=== PATIENT | male | born 1995 ===

== ENCOUNTER 2021-06-22 18:43 | Emergency (ER) | payer OTHER ==
--- NOTE | 2021-06-22 20:13 | ED Physician Documentation ---
History of Present Illness - Stated complaint Stated Complaint: COVID SYMPTOMS - Chief complaint Chief Complaint: Resp - Additonal information Additional information: 26-year-old male with no pertinent past medical history presents emergency department with 24 hours of generalized myalgias, cough congestion fevers that are subjective. Fully vaccinated for COVID-19. Denies sick contacts. He states he got worried when he is asleep in his bedroom and woke up in a sweat. He denies chest pain or shortness of air. He does vape daily. Review of Systems Constitutional: reports: Fever, Chills, Myalgias, Fatigue Eyes: denies: Loss of vision, Discharge, Irritation Ears: reports: Reviewed and negative Nose: reports: Reviewed and negative Throat: reports: Reviewed and negative Cardiac: reports: Reviewed and negative Respiratory: reports: Cough. denies: Dyspnea GI: reports: Nausea. denies: Vomiting : reports: Reviewed and negative Skin: reports: Reviewed and negative Musculoskeletal: reports: Reviewed and negative Neurologic: reports: Reviewed and negative Psychiatric: reports: Reviewed and negative Endocrine: reports: Reviewed and negative PD PAST MEDICAL HISTORY - Present Medications Home Medications: Ambulatory Orders Medication Instructions Recorded Confirmed No Known Home Medications 06/22/21 06/22/21 - Allergies Allergies/Adverse Reactions: Allergies Allergy/AdvReac Type Severity Reaction Status Date / Time No Known Drug Allergies Allergy Verified 06/22/21 20:07 PD ED PE NORMAL - General General: Alert and oriented X 3, No acute distress, Well developed/nourished - HEENT HEENT: Atraumatic, Ears normal, Moist mucous membranes, Pharynx benign - Neck Neck: Supple, no meningeal sign, No adenopathy - Cardiac Cardiac: RRR, No murmur - Respiratory Respiratory: No respiratory distress, Clear bilaterally - Abdomen Abdomen: Normal bowel sounds, Soft, Non tender - Back Back: No CVA TTP, No spinal TTP - Derm Derm: Normal color, Warm and dry, No rash - Extremities Extremities: No deformity - Neuro Neuro: Alert and oriented X 3 Eye Opening: Spontaneous Motor: Obeys Commands Verbal: Oriented GCS Score: 15 Results - Vitals Vitals: Vital Signs - 24 hr 06/22/21 19:40 Temperature 37.6 C Heart Rate 76 Respiratory 20 Rate Blood Pressure 114/74 O2 Saturation 99 Oxygen O2 Source Room air PD MEDICAL DECISION MAKING - ED course Complexity details: re-evaluated patient, considered differential, d/w patient ED course: This is a well-appearing 26-year-old male who presents for 24 hours of cough cold, congestion, subjective fevers and body aches. He is fully vaccinated for COVID-19 and denies sick contacts. Vital signs are unremarkable. No tachycardia or hypoxia. Cardiopulmonary auscultation was unremarkable. COVID- 19 screen is pending. I suspect that he likely has a viral URI. Patient was advised to remain in quarantine until test results are known. Emergent return precautions otherwise discussed. Departure - Departure Disposition: Home, Self Care Clinical Impression: Encounter for screening for COVID-19 Upper respiratory infection Qualifiers: URI type: unspecified viral URI Qualified Code(s): J06.9 - Acute upper respiratory infection, unspecified Condition: Stable Record reviewed to determine appropriate education?: Yes Instructions: ED Viral Syndrome Comments: Baldemar you are seen today for body aches subjective fevers cough headache and sore throat. You most likely have a viral illness causing your symptoms. We are testing you for COVID-19. I do recommend that you remain in quarantine until your test results are known. In general treat this like the common cold. Drink lots of fluids. You can take Tylenol or ibuprofen for any body aches and discomfort. Most symptoms will begin to resolve between 5 and 7 days. If any point you have difficulty breathing, severe chest pain, uncontrolled vomiting please return immediately to the ER for second evaluation. You have a Covid test pending. You need to self quarantine until the result is done and negative. Do not leave your house. Do not get near anybody. The results should be done in 48 to 72 hours. We will call with a positive result, the fastest way to get a negative result for confirmation though is to go to the hospital website at [email or web address], click on the my [facility] tab and sign up for the patient portal. If any friends or family get sick and would like to have a Covid test done, but do not have signs or symptoms that would necessitate being hospitalized, there are multiple local options for Covid testing. [facility] keeps an updated list of testing and vaccination options at [email or web address]
[2021-06-22 20:30] VITALS: BP 114/65
== END 2021-06-22 20:29 | disposition home or self-care (01) ==
LOC: ED 18:43
DX: U07.1 COVID-19 (principal)
CPT/HCPCS: 99282; 99283

== ENCOUNTER 2022-06-27 09:03 | Emergency (ER) | payer OTHER ==
--- NOTE | 2022-06-27 09:55 | XRAY Report ---
PROCEDURE: Chest 2 View X-Ray INDICATIONS: chest pain left TECHNIQUE: 2 views of the chest were acquired. COMPARISON: None. FINDINGS: Surgical changes and devices: None. Lungs and pleura: No pleural effusions or pneumothorax. Lungs are clear. Mediastinum: Mediastinal contours are normal. Heart size is normal. Bones and chest wall: No suspicious bony abnormalities. Soft tissues appear unremarkable. IMPRESSION: No acute cardiopulmonary pathology. Reviewed by: Fidel Mayorga MD on 06/27/2022 9:54 AM [facility] Approved by: Fidel Mayorga MD on 06/27/2022 9:54 AM [facility] Station ID: [id number]
--- NOTE | 2022-06-27 10:48 | ED Physician Documentation ---
PD HPI CHEST PAIN - Stated complaint Stated Complaint: SOA,CHEST PX - Chief complaint Chief Complaint: Cardiac - History obtained from History obtained from: Patient - History of Present Illness Timing - onset: How many days ago (2) Timing - onset during: Light activity Timing - duration: Days (2) Timing - details: Abrupt onset (he was at a friends house and standing by kitchen counter and felt abrupt onset of sharp right chest pain that was worse with breathing and some with movement. [place] short of breath. No syncope. Has continued to have the pain for 2 days. No change with eating. Does hurt more with lying flat on back.) Quality: Sharp, Stabbing, Pain Location: Right chest Radiation: Back Associated symptoms: Shortness of air. No: Nausea, Feeling faint / dizzy, General Weakness, Palpitations, Cough Similar symptoms before: Has not had sx before Recently seen: Not recently seen Review of Systems Constitutional: denies: Fever, Chills Nose: denies: Rhinorrhea / runny nose, Congestion Throat: denies: Sore throat Cardiac: denies: Palpitations, Pedal edema, Calf pain Respiratory: denies: Cough GI: denies: Abdominal Pain, Nausea, Vomiting Skin: denies: Rash PD PAST MEDICAL HISTORY - Past Medical History Cardiovascular: None Respiratory: None Musculoskeletal: None - Present Medications Home Medications: Ambulatory Orders Medication Instructions Recorded Confirmed HYDROcod/ACETAM 5/325 [[place] 5/325] 1 ea PO Q6H PRN #18 tablet 06/27/22 Naproxen 500 mg PO BID #20 tab 06/27/22 Ondansetron Odt [Zofran] 4 mg TL Q6H PRN #10 tablet 06/27/22 - Allergies Allergies/Adverse Reactions: Allergies Allergy/AdvReac Type Severity Reaction Status Date / Time No Known Drug Allergies Allergy Verified 06/27/22 09:13 - Social History Does the pt smoke?: No Does the pt have substance abuse?: No - Family History Family history: denies: Aortic aneursym, Aortic dissection PD ED PE NORMAL - Vitals Vital signs reviewed: Yes - General General: Alert and oriented X 3, No acute distress, Well developed/nourished - Neck Neck: Supple, no meningeal sign, No adenopathy - Cardiac Cardiac: RRR, No murmur, No rub - Respiratory Respiratory: Clear bilaterally, Other (no chestwall tenderness. ) - Abdomen Abdomen: Soft, Non tender - Derm Derm: Normal color, Warm and dry - Extremities Extremities: No edema, No calf tenderness / cord - Neuro Neuro: Alert and oriented X 3, No motor deficit, Normal speech Results - Vitals Vitals: Vital Signs - 24 hr 06/27/22 06/27/22 09:07 15:06 Temperature 36.6 C Heart Rate 62 78 Respiratory 16 16 Rate Blood Pressure 123/85 H 114/64 O2 Saturation 100 99 Oxygen O2 Source Room air - EKG (time done) 09:09 Rate: Rate (enter#) (62) Rhythm: NSR [place]: Normal Intervals: Normal [place] QRS: Normal Ischemia: Normal ST segments. No: ST elevation c/w ischemia, ST depression Compare to prior EKG: Old EKG unavailable - Labs Labs: Laboratory Tests 06/27/22 06/27/22 06/27/22 11:33 11:33 11:33 WBC 5.4 RBC 4.98 Hgb 14.9 Hct 44.5 MCV 89.4 MCH 29.9 MCHC 33.5 RDW 13.2 Plt Count 159 MPV 10.3 Neut # (Auto) 3.2 Lymph # (Auto) 1.7 [place] # (Auto) 0.5 Eos # (Auto) 0.1 Baso # (Auto) 0.0 Absolute Nucleated RBC 0.00 Nucleated RBC % 0.0 ESR 1 D-Dimer 274.0 H Sodium Potassium Chloride Carbon Dioxide Anion Gap BUN Creatinine Estimated GFR (MDRD) Glucose Calcium Total Bilirubin AST ALT Alkaline Phosphatase Troponin I High Sens Total Protein Albumin Globulin Albumin/Globulin Ratio Lipase 06/27/22 06/27/22 11:33 11:33 WBC RBC Hgb Hct MCV MCH MCHC RDW Plt Count MPV Neut # (Auto) Lymph # (Auto) [place] # (Auto) Eos # (Auto) Baso # (Auto) Absolute Nucleated RBC Nucleated RBC % ESR D-Dimer Sodium 135 Potassium 4.1 Chloride 102 Carbon Dioxide 28 Anion Gap 5.0 L BUN 13 Creatinine 0.9 Estimated GFR (MDRD) 101 Glucose 88 Calcium 9.4 Total Bilirubin 1.3 H AST 14 ALT 19 Alkaline Phosphatase 78 Troponin I High Sens < 2.3 L Total Protein 7.2 Albumin 4.5 Globulin 2.7 Albumin/Globulin Ratio 1.7 Lipase 27 - Rads (name of study) chest xray Radiology: Prelim report reviewed (no acute process), EMP read indepedently, See rad report chest CT-A Radiology: Prelim report reviewed (no PE nor acute lung abnormality. ), See rad report PD Medical Decision Making - ED course Complexity details: reviewed old records (I looked for prior hospitalizations or JOSE and did not find any. ), considered differential (had abrupt onset without injury nor mechanism such as cough, of pleuritic right medial chest pain with breathing and some with movement. No rpior similar. URI about 3-4 weeks ago but feeling well after. ), d/w patient Reviewed Lab Results: labs were considered, ordered and evaluated by me. His troponin is less than 2.3 no negative for acute myocardial injury, of either vasoocclusive or inflammatory. ESR is 1, which makes autoimmune such as lupus or rheumatoid unlikely. D-dimer of 274 is above normal range for age and makes pe a consideration still and needs to be evaluated better. Will get CT angio. Basic chest xray did not show any abnormality on my independent review. ECG did not show any abnormalities on my independent interpretation. ED course: evaluation of specific labs to evaluate for serious cause of the chest pain did not reveal a certain answer. D-dimer was above normal so ct angio chest was done, which was read as normal lungs and no PE by radiology report, which I reviewed. Therefore considerations would be some of the remaining causes that would not trigger testing abnormality, such as pleurisy, musculoskeletal pains, gi. Departure - Departure Disposition: 01 Home, Self Care Clinical Impression: Pleuritic chest pain Condition: Stable Record reviewed to determine appropriate education?: Yes Instructions: ED Chest Pain Pleurisy [facility]] Prescriptions: Naproxen 500 mg PO BID #20 tab HYDROcod/ACETAM 5/325 [[place] 5/325] 1 ea PO Q6H PRN #18 tablet PRN Reason: Pain Ondansetron Odt [Zofran] 4 mg TL Q6H PRN #10 tablet PRN Reason: Nausea / Vomiting Comments: It is unclear the cause of your pain in the chest. We looked pretty hard to find any bad things and your tests are looking good. In particular your chest x-ray, CT scan of the chest, EKG, blood tests are able to exclude pneumothorax, heart attack, heart failure, pneumonia, fluid around the heart or lung, or upper abdominal causes such as pancreas or liver inflammation. These are important things to exclude. What is left is potentially some inflammation around the lung (pleurisy). This sometimes is a precursor to a viral illness. If you start having a cough or chills or head cold type symptoms the next couple of days then this could make sense. Other consideration would be musculoskeletal pain. , And treatment for these couple of possibilities are anti-inflammatories and adding Tylenol or hydrocodone as needed for worse pain. I sent prescriptions for these plus some nausea medicine in case to the [facility] pharmacy in [place]. Rest off work for the next 2 to 3 days until this is improved well enough. I would anticipate improvement over the next 2 to 3 days and resolved by 3 to 5 days. Follow-up if not improved in that timeframe or if worsening or new symptoms. I am prescribing a short course of narcotic pain medication for you. These are potentially dangerous and addictive medications that should be used carefully. These medications may constipate you. Take an [id number] stool softener such as docusate twice daily with plenty of water while taking these medications. If you go 24 hours without a bowel movement, take [id number] MiraLAX, per package instructions. Do not drink or drive while taking these medications. If you received narcotic or sedating medications while in the emergency department do not drive for 24 hours. Store this medication in a safe, secure place and out of reach of children. It is a violation of federal law to give or sell this medication to another person or to use in a manner other than prescribed. The ED will not refill narcotic prescriptions, including prescriptions lost or stolen. You can dispose of unwanted medications at the [facility]'s office or at several pharmacies such as [facility]. Forms: Activity restrictions Discharge Date/Time: 06/27/22 15:06
[2022-06-27] MEDS ORDERED: KETOROLAC 15 MG/ML VIAL IVP STA (11:24)
[2022-06-27] MEDS ORDERED: ACETAMINOPHEN 325 MG TABLET PO STA (11:24)
[2022-06-27 11:41] LABS: BASOPHILS % (AUTO) 0.4 %; EOSINOPHILS # (AUTO) 0.1 10^3/uL (0.0-0.7); EOSINOPHILS % (AUTO) 1.3 %; HCT - HEMATOCRIT 44.5 % (42.0-52.0); HGB - HEMOGLOBIN 14.9 g/dL (14.0-18.0); LYMPHOCYTES # (AUTO) 1.7 10^3/uL (1.5-3.5); LYMPHOCYTES % (AUTO) 30.5 %; MEAN CORPUSCULAR HEMOGLOBIN 29.9 pg (27.0-31.0); MEAN CORPUSCULAR HGB CONC 33.5 g/dL (32.0-36.0); MEAN CORPUSCULAR VOLUME 89.4 fL (80.0-94.0); MEAN PLATELET VOLUME 10.3 fL (7.4-11.4); MONOCYTES # (AUTO) 0.5 10^3/uL (0.0-1.0); MONOCYTES % (AUTO) 8.3 %; NEUTROPHILS # (AUTO) 3.2 10^3/uL (1.5-6.6); NEUTROPHILS % (AUTO) 59.1 %; PLT - PLATELET COUNT 159 10^3/uL (130-450); RED BLOOD COUNT 4.98 10^6/uL (4.70-6.10); RED CELL DISTRIBUTION WIDTH 13.2 % (12.0-15.0); WHITE BLOOD COUNT 5.4 x10^3/uL (4.8-10.8)
[2022-06-27 11:57] LABS: ALBUMIN 4.5 g/dL (3.2-5.5); ALBUMIN/GLOBULIN RATIO 1.7 (1.0-2.2); BILIRUBIN,TOTAL 1.3 mg/dL (0.2-1.0); CALCIUM 9.4 mg/dL (8.5-10.3); CREATININE 0.9 mg/dL (0.6-1.2); POTASSIUM 4.1 mmol/L (3.5-5.0); TOTAL PROTEIN 7.2 g/dL (6.7-8.2)
[2022-06-27] MEDS ORDERED: HYDROmorphone 1 MG/ML CARPUJECT IVP STA ×2 (12:40→14:38)
[2022-06-27] MEDS ORDERED: iohexoL-300 100 ML VIAL ONE (13:13)
--- NOTE | 2022-06-27 14:13 | CT Report ---
PROCEDURE: ANGIO CHEST W/WO INDICATIONS: Chest pain abrupt 2d ago CONTRAST: 80ml Omnipaque 300 TECHNIQUE: After the administration of intravenous contrast, 2 mm axial images were acquired from the pulmonary apices to the posterior costophrenic angles during the arterial phase. In addition, 1 mm lung kernel and 5 mm soft tissue kernel reconstructions were performed. 3-dimensional coronal oblique maximum int ensity projection (MIP) reformats, 8 mm axial MIP, and 5 mm coronal and sagittal MPR reformats were t hen performed through the thorax. For radiation dose reduction, the following was used: automated exp osure control, adjustment of mA and/or kV according to patient size. COMPARISON: None FINDINGS: Image quality: Excellent. Pulmonary arteries: Pulmonary arteries are normal in size, and demonstrate no intraluminal filling d efects to suggest central pulmonary embolism. Lungs and pleura: Lungs are clear. No pleural effusions or pneumothorax. Central and peripheral ai rways are patent. Mediastinum: Heart size is normal, without pericardial effusion. No mediastinal or hilar adenopathy . Thoracic aorta is normal in caliber and enhancement. Esophagus is normal in caliber, without hiat al hernia. Bones and chest wall: No suspicious bony lesions. Ribs and thoracic spine appear intact throughout. No axillary or supraclavicular adenopathy. Abdomen: Visualized upper abdominal solid organs appear normal in the early arterial phase of enhanc ement. IMPRESSION: No pulmonary embolism or other acute finding in the chest. Reviewed by: Marbin Gallego MD on 06/27/2022 2:12 PM PST Approved by: Marbin Gallego MD on 06/27/2022 2:12 PM PST Station ID: [id number]
[2022-06-27] MEDS ORDERED: DEXAMETHASONE 10 MG/ML VIAL IVP STA (14:38)
[2022-06-27 15:06] VITALS: BP 114/64
[2022-06-27] MEDS ORDERED: iohexoL-300 100 ML VIAL IVP ONE (15:29)
== END 2022-06-27 15:06 | disposition home or self-care (01) ==
LOC: ED 09:03
DX: R07.81 Pleurodynia (principal)
CPT/HCPCS: 36415; 71046; 71275; 80053; 83690; 84484; 85025; 85379; 85651; 93005; 96374; 96375; 96376; 99284; A9270; J1170; Q9967